=== PATIENT | female | born 1990 | race Caucasian/White ===

== ENCOUNTER → 2020-07-01 15:01 | Outpatient (CLI) | payer OTHER, MEDICAID, SELFPAY ==
[2020-07-01 15:38] LABS: Influenza A - CEPHEID Flu A NEGATIVE (NEGATIVE); Influenza B - CEPHEID Flu B NEGATIVE (NEGATIVE)
[2020-07-01 16:13] LABS: COVID19 -Nasal RAPID Negative (Negative)
== END ==
PROVIDERS: Visit Provider Physician Assistant
DX: Z11.59 Encounter for screening for other viral diseases (principal); R13.10 Dysphagia, unspecified; R07.0 Pain in throat
CPT/HCPCS: 87070; 87186; 87502; 87635

== ENCOUNTER 2022-01-10 22:41 | Emergency (ER) | payer OTHER, MEDICAID, SELFPAY ==
[2022-01-10 22:52] VITALS: BP 169/102; PULSE 82; RESP 18; TEMP 37.1; O2SAT 99; BMI 41.5
--- NOTE | 2022-01-10 23:03 | PC.NURSE ---
Reports headache is through out her head, goes down the back of her neck and into shoulders/upper back.
[2022-01-10 23:30] LABS: Bacteria Urine Occasional (0-1); Culture Indicated Urine Cult Not Indicated; RBC Urine 0-1/HPF (0-5/HPF); Squamous Epithelial Cell Urine 1-5 /HPF (0-5/HPF); WBC Urine None Seen (0-5/HPF)
--- NOTE | 2022-01-10 23:41 | ED.HA ---
HPI - Headache General Chief Complaint: Headache Stated Complaint: Severe pain in head since yesterday Time Seen by Provider: 01/10/22 22:59 Source: patient Mode of arrival: Ambulatory Limitations: no limitations History of Present Illness HPI Narrative: Patient is a 31-year-old female who is here for evaluation of a headache. She states that the pain is in the front of her head and also in the back of her head. Was a fairly sudden onset. She states that she was having sexual intercourse at the time when the symptoms started. This did occur yesterday is been constant since then. She reported that she had very similar symptoms approximately 1 week ago again while having sexual intercourse. The headache that she had a couple days ago only lasted for short period of time the resolved however today's has persisted. No vision changes. No numbness and tingling in arms or legs. No sinus congestion. No sore throat. No chest pain. No shortness of breath. No abdominal pain. No tingling in her extremities. Related Data Previous Rx's Medication Instructions Recorded benzonatate 100 mg capsule 100 mg PO BID PRN cough #14 caps 10/06/21 methylprednisolone 4 mg tablets in See Rx Instructions PO PER PKG DIR 10/06/21 a dose pack (Medrol (Brian)) #21 ea omeprazole 20 mg capsule,delayed 20 mg PO DAILY #30 caps 10/06/21 release Allergies Allergy/AdvReac Type Severity Reaction Status Date / Time No Known Drug Allergies Allergy Unverified 10/06/21 18:28 Review of Systems Constitutional Constitutional: Reports system reviewed and no additional complaints, except as documented and Reports headache(s) Eyes Eyes: Reports as per HPI and Reports system reviewed and no additional complaints, except as documented ENT Ears, Nose, Mouth, and Throat: Reports system reviewed and no additional complaints, except as documented, Reports as per HPI and Reports headache(s) Cardiovascular Cardiovascular: Reports system reviewed and no additional complaints, except as documented Respiratory Respiratory: Reports system reviewed and no additional complaints, except as documented Gastrointestinal Gastrointestinal: Reports system reviewed and no additional complaints, except as documented Musculoskeletal Musculoskeletal: Reports system reviewed and no additional complaints, except as documented Integumentary/Breasts Skin/Breast: Reports system reviewed and no additional complaints, except as documented Neurologic Neurologic: Reports headache(s) Hematologic/Lymphatic On Anticoagulants: No Patient History Medical History No active medical problems Social History Smoking Status: Never smoker Smoking Status: Never smoker alcohol intake frequency: holidays/special occasions only Substance Use Type: does not use Exam Initial Vital Signs Initial Vital Signs: Vital Signs Temperature 98.8 F 01/10/22 22:52 Pulse Rate 82 01/10/22 22:52 Respiratory Rate 18 01/10/22 22:52 Blood Pressure 169/102 H 01/10/22 22:52 Pulse Oximetry 99 01/10/22 22:52 Oxygen Delivery Method 01/10/22 22:52 Const General: cooperative, comfortable, well developed and No ill appearing HENMT Head: normal to inspection and normocephalic Face and sinus: normal facial exam Eyes General: Yes appearance normal, both eyes and all related structures Pupils: PERRL EOM: EOM intact bilaterally Resp Effort & Inspection: normal respiratory effort Auscultation: clear to auscultation bilaterally Cardio Rate: regular rate Rhythm: regular rhythm Skin General: no rashes or lesions noted Neuro General: patient alert, patient awake, patient oriented x3 and moves all extremities Cranial Nerves: CN's II-XI intact bilaterally Cognition: normal cognition Speech: speech normal Motor: muscle tone normal throughout Extrem General: normal to inspection and capillary refill normal Psych Appearance: grossly normal and well kempt Course Orders Ordered: ED Orders 01/10/22 23:07 Urine Microscopic Stat 01/10/22 23:35 Basic Metabolic Panel Stat Complete Blood Count AUTO DIFF Stat 01/10/22 23:44 CT angio head and neck Stat Discontinued Medications Diphenhydramine HCl (Diphenhydramine 50 Mg/Ml Vial) 25 mg IV NOW ONE Stop: 01/11/22 00:16 Last Admin: 01/11/22 00:29 Dose: 25 mg Documented By: SILVER Sodium Chloride (Normal Saline 0.9%) 1,000 mls @ 1,000 mls/hr IV BOLUS ONE Stop: 01/11/22 00:42 Last Infusion: 01/11/22 01:18 Dose: 0 mls/hr Documented By: Admin: 01/11/22 00:17 Dose: 1,000 mls/hr Documented By: SILVER Ketorolac Tromethamine (Ketorolac 30 Mg/Ml Vial) 30 mg IV NOW ONE Stop: 01/11/22 01:07 Last Admin: 01/11/22 01:14 Dose: 30 mg Documented By: JANY Metoclopramide HCl (Metoclopramide 10 Mg/2 Ml Inj) 10 mg IV NOW ONE Stop: 01/11/22 00:16 Last Admin: 01/11/22 00:28 Dose: 10 mg Documented By: SILVER Vital Signs Vital signs: Vital Signs - 8 hr 01/10/22 22:52 Temperature 98.8 F Pulse Rate 82 Respiratory Rate 18 Blood Pressure 169/102 H Pulse Oximetry 99 Oxygen Delivery Method Room Air MDM - Headache Lab Data Attestation: I reviewed the patient's lab results. Result diagrams: 01/10/22 23:35 01/10/22 23:35 Labs: Lab Results 01/10/22 01/10/22 01/10/22 Range/Units 23:07 23:35 23:35 WBC 9.4 (4.5-11.0) X10^3/uL RBC 4.83 (4.0-5.2) X10^6/uL Hgb 13.0 (12.0-16.0) g/dL Hct 39.1 (36-46) % MCV 80.9 (80-100) fL MCH 26.9 (26-34) PG MCHC 33.2 (30-36) % RDW 14.0 (11.6-14.8) % Plt Count 354 (150-400) X10^3/uL Neut % (Auto) 59.0 (50-75) % Lymph % (Auto) 27.5 (25-40) % [place] % (Auto) 9.0 (3-14) % Eos % (Auto) 3.2 (2-4) % Baso % (Auto) 1.3 (0-2) % Neut # (Auto) 5600 (6871-8546) /uL Lymph # (Auto) 2600 (2598-5306) /uL [place] # (Auto) 800 (0-900) /uL Eos # (Auto) 300 (0-450) /uL Baso # (Auto) 100 (0-100) /uL Sodium 139 (137-145) mmol/L Potassium 3.5 (3.4-5.1) mmol/L Chloride 103 (98-107) mmol/L Carbon Dioxide 27 (22-32) mmol/L BUN 13 (7-17) mg/dL Creatinine 0.88 (0.52-1.04) mg/dL Estimated GFR > 60 (>60) mL/min BUN/Creatinine Ratio 14.8 (6-22) Glucose 101 H (70-100) mg/dL Calcium 10.2 (8.4-10.2) mg/dL Urine RBC 0-1/hpf (0-5/HPF) Urine WBC None seen (0-5/HPF) Ur Squamous Epith Cells 1-5 /hpf (0-5/HPF) Urine Bacteria Occasional (0-1) (None) Ur Culture Indicated? Cult not indicated Point of Care Testing Test Results Negative Urine Dip Bedside Urine Glucose Negative Bedside Urine Bilirubin - Negative Bedside Urine Ketone - Negative Urine Specific [place] 1.020 Bedside Urine Occult Blood +/- Bedside Urine pH 6.0 Bedside Urine Protein - Negative Bedside Urine Urobilinogen - Negative Bedside Urine Nitrite - Negative Bedside Urine Leukocytes - Negative Esterase Imaging Data CTA - brain/neck: Radiologist's Impression: [place] [address] CT Scan Report Signed Patient: Marisela Forrest MR#: [id number] : 1990 Acct:[id number] Age/Sex: 31 / F Date of Service: 01/10/22 Loc: ED Accession Number: [id number] ?? Procedure: CT angio head and neck Ordering Provider: Jai Brantley D.O. PROCEDURE:? CT ANGIO HEAD AND NECK ? INDICATIONS:? Sudden-onset headache 2 days ago ? TECHNIQUE:? Pre-contrast 5 mm thick sections acquired from the foramen magnum to the vertex.? After the administration of intravenous contrast, 1 mm thick sections acquired from the aortic arch through the [place].? Post-contrast 4.5 mm thick sections then re-acquired from the foramen magnum to the vertex.? 3-dimensional bjibewt-ucddswkpk-nlqrnzdkys (MIP) and/or volume rendering reformats were acquired of the central intracranial vasculature and neck separately. For radiation dose reduction, the following was used:? automated exposure control, adjustment of mA and/or kV according to patient size.? ? COMPARISON:? [facility], MR, MR BRAIN WITH/WITHOUT CONTRAST, 05/09/2018, 8:47. ? FINDINGS:? Image quality:? Excellent.? ? BRAIN:? CSF spaces:? Basal cisterns are patent.? No extra-axial fluid collections.? Ventricles are normal in size and shape.? ? Brain:? No intracranial hemorrhage, mass, or mass effect.? Patrick-white matter interface appears preserved.? No abnormal intracranial enhancement.? ? Skull and face:? Calvarium and facial bones appear intact, without suspicious lesions.? Orbits appear normal.? ? Sinuses:? Sinuses and mastoids are clear.? ? HEAD CT ANGIOGRAPHY:? Anterior circulation:? Intracranial internal carotid arteries are normal in size and appear patent bilaterally.? There is mild atherosclerotic calcification along the cavernous segments of the internal carotid arteries.? The paired anterior cerebral arteries appear patent bilaterally.? The anterior communicating artery also appears patent. The middle cerebral arteries appear patent bilaterally.? No high-grade stenosis, occlusion, or filling defects.? No cerebral aneurysms identified. ? Posterior circulation:? Visualized portions of the vertebral arteries demonstrate normal caliber, and join to form a patent basilar artery.? The posterior cerebral arteries appears patent bilaterally.? No high-grade stenosis, occlusion, or filling defects.? No cerebral aneurysms identified. ? NECK CT ANGIOGRAPHY:? Carotid system:? The great vessels demonstrate a conventional anatomy as they arise from the aortic arch.? The origins of the common carotid arteries appear patent.? The common carotid arteries demonstrate normal caliber and courses.? The bifurcation regions are both widely patent.? The internal carotid arteries demonstrate normal calibers and courses.? ? Posterior circulation:? The origins of the vertebral arteries both appear patent.? More superior extracranial portions of both vertebral arteries also demonstrate normal courses and calibers.? They join to form a patent basilar artery.? ? Soft tissues:? Visualized neck soft tissues demonstrate a hypoattenuating left thyroid nodule measuring up to 0.8 cm. ? Bones:? No suspicious bony lesions.? Visualized cervical spine appears normally aligned.? IMPRESSION:? ? 1. No acute intracranial abnormality. ? 2. No high-grade stenosis or occlusion of the central intracranial arteries. ? 3. No high-grade stenosis or occlusion of the head and neck arteries.? Carotid bulbs are widely patent.? ? Any quantitative measurements of stenosis were performed using NASCET criteria.? ? ? Dictated by: Jesús Palafox M.D. on 01/11/2022 at 0:36 ? ? Approved by: Jesús Palafox M.D. on 01/11/2022 at 0:46? [facility] Narrative Medical decision making narrative: Patient has a unremarkable neurologic exam CTA of the head neck showed no signs of bleed nor clots nor intracranial hemorrhage. She reports improvement of headache after medication provided here in the ER. Consider meningitis however symptoms are not consistent with that. Considered head bleed however head CT is unremarkable. Also consider vasospasm given the nature of the onset of the symptoms. With improvement of symptoms and workup in exam up to this point I feel patient could be safely discharged home follow up with her primary doctor. She was advised that she does need to talk with him about potentially seeing a neurologist in the fact that this is not happen 2 different times. She was given return precautions. She expressed understanding and agreement. Discharge Plan Departure Patient Disposition: Home Clinical Impression: Headache Instructions: DI for Headache Activity Restrictions/Additional Instructions: Continue to take all of your medications as directed. Contact your primary doctor for a follow-up especially if her headache does not improve over the next couple days. Return to the emergency department for any worsening symptoms. Prescriptions: No Action methylprednisolone [Medrol (Brian)] 4 mg tablets,dose pack See Rx Instructions PO PER PKG DIR Qty: 21 0RF Rx Instructions: PO PER PKG DIR benzonatate 100 mg capsule 100 mg PO BID PRN (Reason: cough) Qty: 14 0RF omeprazole 20 mg capsule,delayed release(DR/EC) 20 mg PO DAILY Qty: 30 0RF Rx Instructions: on empty stomach Referrals: Miscellaneous,Doctor, [Primary Care Provider] -
--- NOTE | 2022-01-10 23:44 | DI.CT.S_ITS ---
PROCEDURE: CT ANGIO HEAD AND NECK INDICATIONS: Sudden-onset headache 2 days ago TECHNIQUE: Pre-contrast 5 mm thick sections acquired from the foramen magnum to the vertex. After the administration of intravenous contrast, 1 mm thick sections acquired from the aortic arch through the [place]. Post-contrast 4.5 mm thick sections then re-acquired from the foramen magnum to the vertex. 3-dimensional djaigwg-eumhoxuxt-xbfwydgcjq (MIP) and/or volume rendering reformats were acquired of the central intracranial vasculature and neck separately. For radiation dose reduction, the following was used: automated exposure control, adjustment of mA and/or kV according to patient size. COMPARISON: [facility], MR, MR BRAIN WITH/WITHOUT CONTRAST, 05/09/2018, 8:47. FINDINGS: Image quality: Excellent. BRAIN: CSF spaces: Basal cisterns are patent. No extra-axial fluid collections. Ventricles are normal in size and shape. Brain: No intracranial hemorrhage, mass, or mass effect. Patrick-white matter interface appears preserved. No abnormal intracranial enhancement. Skull and face: Calvarium and facial bones appear intact, without suspicious lesions. Orbits appear normal. Sinuses: Sinuses and mastoids are clear. HEAD CT ANGIOGRAPHY: Anterior circulation: Intracranial internal carotid arteries are normal in size and appear patent bilaterally. There is mild atherosclerotic calcification along the cavernous segments of the internal carotid arteries. The paired anterior cerebral arteries appear patent bilaterally. The anterior communicating artery also appears patent. The middle cerebral arteries appear patent bilaterally. No high-grade stenosis, occlusion, or filling defects. No cerebral aneurysms identified. Posterior circulation: Visualized portions of the vertebral arteries demonstrate normal caliber, and join to form a patent basilar artery. The posterior cerebral arteries appears patent bilaterally. No high-grade stenosis, occlusion, or filling defects. No cerebral aneurysms identified. NECK CT ANGIOGRAPHY: Carotid system: The great vessels demonstrate a conventional anatomy as they arise from the aortic arch. The origins of the common carotid arteries appear patent. The common carotid arteries demonstrate normal caliber and courses. The bifurcation regions are both widely patent. The internal carotid arteries demonstrate normal calibers and courses. Posterior circulation: The origins of the vertebral arteries both appear patent. More superior extracranial portions of both vertebral arteries also demonstrate normal courses and calibers. They join to form a patent basilar artery. Soft tissues: Visualized neck soft tissues demonstrate a hypoattenuating left thyroid nodule measuring up to 0.8 cm. Bones: No suspicious bony lesions. Visualized cervical spine appears normally aligned. IMPRESSION: 1. No acute intracranial abnormality. 2. No high-grade stenosis or occlusion of the central intracranial arteries. 3. No high-grade stenosis or occlusion of the head and neck arteries. Carotid bulbs are widely patent. Any quantitative measurements of stenosis were performed using NASCET criteria. Dictated by: Jesús Palafox M.D. on 01/11/2022 at 0:36 Approved by: Jesús Palafox M.D. on 01/11/2022 at 0:46
[2022-01-10 23:51] LABS: Add Manual Diff / Slide Review NO; Basophils Absolute Auto 100 /uL (0-100); Basophils Percent Auto 1.3 % (0-2); Eosinophils Absolute Auto 300 /uL (0-450); Eosinophils Percent Auto 3.2 % (2-4); Hematocrit 39.1 % (36-46); Lymphocytes Absolute Auto 2600 /uL (1100-4500); Lymphocytes Percent Auto 27.5 % (25-40); Mean Corpuscular HGB Conc 33.2 % (30-36); Mean Corpuscular Hemoglobin 26.9 PG (26-34); Mean Corpuscular Volume 80.9 fL (80-100); Monocytes Absolute Auto 800 /uL (0-900); Neutrophils Absolute Auto 5600 /uL (1500-7000); Platelet Count 354 X10^3/uL (150-400); Red Blood Cell Count 4.83 X10^6/uL (4.0-5.2); White Blood Cell Count 9.4 X10^3/uL (4.5-11.0)
[2022-01-10 23:56] LABS: BUN Creatinine Ratio 14.8 (6-22); Blood Urea Nitrogen 13 mg/dL (7-17); Calcium 10.2 mg/dL (8.4-10.2); Carbon Dioxide 27 mmol/L (22-32); Chloride 103 mmol/L (98-107); Estimated Glomerular Filt Rate > 60 mL/min (>60); Glucose 101 mg/dL (70-100); HEMOLYSIS < 15 (0-50); Potassium 3.5 mmol/L (3.4-5.1); Sodium 139 mmol/L (137-145)
[2022-01-11] MEDS: SODIUM CHLORIDE 0.9% 1,000 ML 1000 ML IV (00:17)
[2022-01-11] MEDS: METOCLOPRAMIDE 10 MG/2 ML INJ IV (00:28)
[2022-01-11] MEDS: diphenhydrAMINE 50 MG/ML VIAL 25 MG IV (00:29)
[2022-01-11] MEDS: KETOROLAC 30 MG/ML VIAL IV (01:14)
[2022-01-11 02:08] VITALS: BP 165/95; PULSE 87; RESP 20; O2SAT 98
== END 2022-01-11 02:09 | disposition home or self-care (01) ==
PROVIDERS: Emergency Provider Emergency Medicine
DX: R51.9 Headache, unspecified (principal)
CPT/HCPCS: 36415; 70496; 70498; 80048; 81003; 81015; 81025; 85025; 96374; 96375; 99284; J1200; J1885; J2765; Q9967

== ENCOUNTER → 2022-08-28 15:06 | Outpatient (CLI) | payer OTHER, MEDICAID, SELFPAY ==
--- NOTE | 2022-08-28 | DI.CT.S_ITS ---
PROCEDURE: CT SINUS SCREEN WO CON INDICATIONS: Chronic pansinusitis TECHNIQUE: Noncontrast 3.0 mm axial images acquired from the frontal sinuses to the mid-sella, with coronal and sagittal reformats. For radiation dose reduction, the following was used: automated exposure control, adjustment of mA and/or kV according to patient size. COMPARISON: None. FINDINGS: Image quality: Excellent. Maxillary Sinuses: No bony remodeling or destruction. Sinuses are clear. Ethmoid Air Cells: No bony remodeling or destruction. Sinuses are clear. Sphenoid Sinuses: No bony remodeling or destruction. Sinuses are clear. Frontal Sinuses: No bony remodeling or destruction. Sinuses are clear. Ostiomeatal Complexes: Ostiomeatal complexes are patent. No [place] cells. Miscellaneous: Cartilaginous septum is perforated. Defect measures 1.8 by 0.2 cm IMPRESSION: Perforated nasal septum. Otherwise unremarkable CT of the paranasal sinuses Approved by: Caleb Humphries M.D. on 08/28/2022 at 17:29
== END ==
PROVIDERS: Referring Provider Otolaryngology; Visit Provider Otolaryngology
DX: J32.4 Chronic pansinusitis (principal); J34.89 Other specified disorders of nose and nasal sinuses; R43.9 Unspecified disturbances of smell and taste
CPT/HCPCS: 70486

== ENCOUNTER → 2022-11-02 17:29 | Outpatient (CLI) | payer OTHER, MEDICAID, SELFPAY ==
--- NOTE | 2022-11-02 17:37 | DI.RAD.S_ITS ---
PROCEDURE: XR CHEST 2V INDICATIONS: Shortness of breath TECHNIQUE: 2 views of the chest were acquired. COMPARISON: [facility], CR, XR CHEST 1 VIEW, 08/21/2022, 11:13. [facility], CR, XR CHEST 1 VIEW, 10/11/2021, 14:42. FINDINGS: Surgical changes and devices: None. Lungs and pleura: Lungs are clear. No pleural effusions or pneumothorax. Mediastinum: Mediastinal contours are normal. Heart size is normal. Bones and chest wall: No suspicious bony abnormalities. Soft tissues appear unremarkable. IMPRESSION: Normal. Dictated by: Adalid Liriano M.D. on 11/02/2022 at 20:49 Approved by: Adalid Liriano M.D. on 11/02/2022 at 20:49
== END ==
PROVIDERS: Referring Provider Nurse Practitioner Family; Visit Provider Nurse Practitioner Family
DX: R06.02 Shortness of breath (principal)
CPT/HCPCS: 71046

== ENCOUNTER 2022-12-27 16:14 | Emergency (ER) | payer OTHER, MEDICAID, SELFPAY ==
[2022-12-27 16:35] VITALS: BP 150/93; PULSE 72; RESP 16; TEMP 36.4; O2SAT 100; BMI 42.1
[2022-12-27 18:55] LABS: Add Manual Diff / Slide Review NO; Basophils Absolute Auto 100 /uL (0-100); Basophils Percent Auto 1.3 % (0-2); Eosinophils Absolute Auto 200 /uL (0-450); Eosinophils Percent Auto 2.1 % (2-4); Hematocrit 36.9 % (36-46); Hemoglobin 12.1 g/dL (12.0-16.0); Lymphocytes Absolute Auto 2600 /uL (1100-4500); Lymphocytes Percent Auto 27.4 % (25-40); Mean Corpuscular HGB Conc 32.9 % (30-36); Mean Corpuscular Hemoglobin 25.7 PG (26-34); Mean Corpuscular Volume 78.3 fL (80-100); Monocytes Absolute Auto 700 /uL (0-900); Monocytes Percent Auto 7.7 % (3-14); Neutrophils Absolute Auto 5900 /uL (1500-7000); Neutrophils Percent Auto 61.5 % (50-75); Platelet Count 410 X10^3/uL (150-400); Red Blood Cell Count 4.71 X10^6/uL (4.0-5.2); Red Cell Distribution Width 14.3 % (11.6-14.8); White Blood Cell Count 9.5 X10^3/uL (4.5-11.0)
[2022-12-27 19:13] LABS: BUN Creatinine Ratio 15.3 (6-22); Blood Urea Nitrogen 13 mg/dL (7-17); Calcium 9.4 mg/dL (8.4-10.2); Carbon Dioxide 26 mmol/L (22-32); Chloride 102 mmol/L (98-107); Estimated Glomerular Filt Rate > 60 mL/min (>60); Glucose 93 mg/dL (70-100); HEMOLYSIS < 15 (0-50); Potassium 3.6 mmol/L (3.4-5.1); Sodium 138 mmol/L (137-145)
--- NOTE | 2022-12-27 19:33 | ED_ITS ---
HPI - General Adult General Chief complaint: Abdominal Pain Stated complaint: Black, Tar-like, Bloody stool Time Seen by Provider: 12/27/22 18:08 Source: patient Mode of arrival: Ambulatory History of Present Illness HPI narrative: Patient is a 32-year-old female who is here for evaluation approximately 1 week of abdominal cramping and 1 day black tar stools and clots. She has had GI issues in the past. She does have a GI doctor that she does see. Has had an endoscopy and also colonoscopy but that was years ago. She is not on anti coagulation. Is not feeling chest pain or lightheaded no shortness of breath on exertion. Related Data Previous Rx's Medication Instructions Recorded benzonatate 100 mg capsule 100 mg PO BID PRN cough #14 caps 10/06/21 methylprednisolone 4 mg tablets in See Rx Instructions PO PER PKG DIR 10/06/21 a dose pack (Medrol (Brian)) #21 ea omeprazole 20 mg capsule,delayed 20 mg PO DAILY #30 caps 10/06/21 release Allergies Allergy/AdvReac Type Severity Reaction Status Date / Time No Known Drug Allergies Allergy Unverified 10/06/21 18:28 Review of Systems Constitutional Constitutional: Reports system reviewed and no additional complaints, except as documented Cardiovascular Cardiovascular: Reports system reviewed and no additional complaints, except as documented Respiratory Respiratory: Reports system reviewed and no additional complaints, except as documented Gastrointestinal Gastrointestinal: Reports system reviewed and no additional complaints, except as documented Hematologic/Lymphatic On Anticoagulants: No Patient History Medical History No active medical problems Social History Smoking Status: Never smoker Smoking Status: Never smoker alcohol intake frequency: holidays/special occasions only Substance Use Type: does not use Exam Initial Vital Signs Initial Vital Signs: Vital Signs Temperature 97.6 F 12/27/22 16:35 Pulse Rate 72 12/27/22 16:35 Respiratory Rate 16 12/27/22 16:35 Blood Pressure 150/93 H 12/27/22 16:35 Pulse Oximetry 100 12/27/22 16:35 Oxygen Delivery Method Room Air 12/27/22 16:35 HENMT Head: normal to inspection and normocephalic Resp Effort & Inspection: normal respiratory effort Cardio Rate: regular rate GI Inspection: non-distended Neuro General: patient alert, patient awake and moves all extremities Course Orders Ordered: ED Orders 12/27/22 18:36 Basic Metabolic Panel Stat Complete Blood Count AUTO DIFF Stat Vital Signs Vital signs: Vital Signs - 8 hr 12/27/22 19:37 Pulse Rate 73 Respiratory Rate 18 Blood Pressure 136/72 Pulse Oximetry 98 Oxygen Delivery Method Room Air Medical Decision Making Lab Data Lab results reviewed: Yes I reviewed the patient's lab results. 12/27/22 18:36 12/27/22 18:36 Labs: Lab Results 12/27/22 12/27/22 Range/Units 18:36 18:36 WBC 9.5 (4.5-11.0) X10^3/uL RBC 4.71 (4.0-5.2) X10^6/uL Hgb 12.1 (12.0-16.0) g/dL Hct 36.9 (36-46) % MCV 78.3 L (80-100) fL MCH 25.7 L (26-34) PG MCHC 32.9 (30-36) % RDW 14.3 (11.6-14.8) % Plt Count 410 H (150-400) X10^3/uL Neut % (Auto) 61.5 (50-75) % Lymph % (Auto) 27.4 (25-40) % [place] % (Auto) 7.7 (3-14) % Eos % (Auto) 2.1 (2-4) % Baso % (Auto) 1.3 (0-2) % Neut # (Auto) 5900 (6080-1513) /uL Lymph # (Auto) 2600 (6813-9343) /uL [place] # (Auto) 700 (0-900) /uL Eos # (Auto) 200 (0-450) /uL Baso # (Auto) 100 (0-100) /uL Sodium 138 (137-145) mmol/L Potassium 3.6 (3.4-5.1) mmol/L Chloride 102 (98-107) mmol/L Carbon Dioxide 26 (22-32) mmol/L BUN 13 (7-17) mg/dL Creatinine 0.85 (0.52-1.04) mg/dL Estimated GFR > 60 (>60) mL/min BUN/Creatinine Ratio 15.3 (6-22) Glucose 93 (70-100) mg/dL Calcium 9.4 (8.4-10.2) mg/dL MDM Narrative Medical decision making narrative: Patient is anemic. Not tachycardic. Hypotensive. Asymptomatic the rectal bleeding. Patient is going to require further in specifically colonoscopy potentially an upper endoscopy but this can be as an outpatient. Informed her that she should contact her GI doctor for this and she was also given numbers were General surgery here locally indication for any radiologic studies did discuss starting on a proton pump inhibitor she was given return precautions. She expressed understanding agreement Discharge Plan Departure Patient Disposition: Home Clinical Impression: Melena Instructions: DI for Rectal Bleeding Activity Restrictions/Additional Instructions: I do recommend that on Saturday you contact your GI doctor for follow-up to discuss the indications for a colonoscopy. You could also contact the general surgery department at the number provided below. Also recommend that you started on a medicine called a proton pump inhibitor. Examples these include Nexium, omeprazole, esomeprazole, Prilosec. You can purchase these [id number]. Return to the emergency department for new or worsening symptoms. Prescriptions: No Action methylprednisolone [Medrol (Brian)] 4 mg tablets,dose pack See Rx Instructions PO PER PKG DIR Qty: 21 0RF Rx Instructions: PO PER PKG DIR benzonatate 100 mg capsule 100 mg PO BID PRN (Reason: cough) Qty: 14 0RF omeprazole 20 mg capsule,delayed release(DR/EC) 20 mg PO DAILY Qty: 30 0RF Rx Instructions: on empty stomach Referrals: Surjit Kay MD [Physician] - Miscellaneous,MD Jl [Primary Care Provider] - Stand Alone Forms: Patient Portal/API
[2022-12-27 19:37] VITALS: BP 136/72; PULSE 73; RESP 18; O2SAT 98
== END 2022-12-27 19:44 | disposition home or self-care (01) ==
PROVIDERS: Emergency Provider Emergency Medicine
DX: K92.1 Melena (principal); R10.9 Unspecified abdominal pain
CPT/HCPCS: 80048; 85025; 99281; 99283

== ENCOUNTER 2024-05-04 18:15 | Emergency (ER) | payer OTHER, MEDICAID, SELFPAY ==
[2024-05-04 18:23] VITALS: BP 164/92; PULSE 99; RESP 18; TEMP 36.8; O2SAT 99; BMI 44.1
--- NOTE | 2024-05-04 18:37 | ED_ITS ---
HPI - Headache General Chief Complaint: Headache Stated Complaint: Headache Time Seen by Provider: 05/04/24 18:25 Source: patient Mode of arrival: Ambulatory Limitations: no limitations History of Present Illness HPI Narrative: Patient is a 34-year-old female. She does have a history of headaches but she states this is somewhat worse and different than prior headaches. It was a fairly sudden onset approximately 24 hours ago. No fevers. She states that it does feel like it is in the front of her head in his a sharp and pounding headache. It does get somewhat worse when she looks up. No numbness or tingling in her extremities. No chest pain or shortness of breath. She has been trying home natural remedies without improvement of her headache. Related Data Allergies Allergy/AdvReac Type Severity Reaction Status Date / Time hydrocodone AdvReac Headache Verified 05/04/24 18:26 Review of Systems Review of Systems Narrative: See HPI Patient History Medical History No active medical problems Social History Smoking Status: Never smoker Smoking Status: Never smoker alcohol intake frequency: holidays/special occasions only Substance Use Type: does not use Exam Initial Vital Signs Initial Vital Signs: Vital Signs Temperature 98.2 F 05/04/24 18:23 Pulse Rate 99 H 05/04/24 18:23 Respiratory Rate 18 05/04/24 18:23 Blood Pressure 164/92 H 05/04/24 18:23 Pulse Oximetry 99 05/04/24 18:23 Oxygen Delivery Method Room Air 05/04/24 18:23 Const General: cooperative and No ill appearing HENPA Head: normal to inspection and normocephalic Resp Effort & Inspection: normal respiratory effort Auscultation: clear to auscultation bilaterally Cardio Rate: regular rate Rhythm: regular rhythm Skin General: no rashes or lesions noted Neuro General: patient alert, patient awake, patient oriented x3 and moves all extremities Cognition: normal cognition Speech: speech normal Gait: normal gait Motor: muscle tone normal throughout Extrem General: normal to inspection Scores GCS Maryam coma scale eye opening: Spontaneous [place] coma scale verbal response: Orientated [place] coma scale motor response: Obey commands [place] coma scale total score: 15 Course Orders Ordered: ED Orders 05/04/24 18:41 CT angio head and neck Stat 05/04/24 19:10 Basic Metabolic Panel Stat Complete Blood Count AUTO DIFF Stat Test Serum,Qual Stat 05/04/24 19:16 CT head/brain wo con Stat Discontinued Medications Diphenhydramine HCl (Diphenhydramine 50 Mg/Ml Vial) 25 mg IV NOW ONE Stop: 05/04/24 18:39 Last Admin: 05/04/24 19:21 Dose: 25 mg Documented By: Sodium Chloride (Normal Saline 0.9%) 500 mls @ 500 mls/hr IV BOLUS ONE Stop: 05/04/24 19:37 Last Infusion: 05/04/24 20:31 Dose: Infused Documented By: Admin: 05/04/24 19:21 Dose: 500 mls/hr Documented By: Acetaminophen (Ofirmev) 1,000 mg in 100 mls @ 400 mls/hr IV NOW ONE Stop: 05/04/24 18:52 Last Infusion: 05/04/24 20:31 Dose: Infused Documented By: Admin: 05/04/24 19:21 Dose: 400 mls/hr Documented By: Metoclopramide HCl (Metoclopramide 10 Mg/2 Ml Inj) 10 mg IV NOW ONE Stop: 05/04/24 18:39 Last Admin: 05/04/24 19:21 Dose: 10 mg Documented By: Vital Signs Vital signs: Vital Signs - 8 hr 05/04/24 18:23 05/04/24 19:33 05/04/24 19:33 Temperature 98.2 F Pulse Rate 99 H 111 H Respiratory Rate 18 Blood Pressure 164/92 H 158/96 H Pulse Oximetry 99 99 Oxygen Delivery Method Room Air 05/04/24 20:00 05/04/24 20:00 05/04/24 20:35 Temperature 98.2 F Pulse Rate 93 H 85 Respiratory Rate 17 Blood Pressure 141/72 H 141/72 H Pulse Oximetry 96 98 Oxygen Delivery Method Room Air MDM - Headache Lab Data Attestation: I reviewed the patient's lab results. 05/04/24 19:10 05/04/24 19:10 Labs: Lab Results 05/04/24 Range/Units 19:10 WBC 8.7 (4.5-11.0) X10^3/uL RBC 5.29 H (4.0-5.2) X10^6/uL Hgb 13.2 (12.0-16.0) g/dL Hct 40.9 (36-46) % MCV 77.4 L (80-100) fL MCH 24.9 L (26-34) PG MCHC 32.2 (30-36) % RDW 16.7 H (11.6-14.8) % Plt Count 458 H (150-400) X10^3/uL Neut % (Auto) 70.8 (50-75) % Lymph % (Auto) 17.0 L (25-40) % [place] % (Auto) 9.4 (3-14) % Eos % (Auto) 1.7 L (2-4) % Baso % (Auto) 1.1 (0-2) % Neut # (Auto) 6100 (7151-5155) /uL Lymph # (Auto) 1500 (7969-0481) /uL [place] # (Auto) 800 (0-900) /uL Eos # (Auto) 100 (0-450) /uL Baso # (Auto) 100 (0-100) /uL Sodium 139 (137-145) mmol/L Potassium 4.0 (3.4-5.1) mmol/L Chloride 106 (98-107) mmol/L Carbon Dioxide 25 (22-32) mmol/L BUN 12 (7-17) mg/dL Creatinine 0.76 (0.52-1.04) mg/dL Estimated GFR > 60 (>60) mL/min BUN/Creatinine Ratio 15.8 (6-22) Glucose 126 H (70-100) mg/dL Calcium 9.4 (8.4-10.2) mg/dL Serum , Qual Negative (Negative) Imaging Data CTA - brain/neck: Radiologist's Impression: PROCEDURE: CT ANGIO HEAD AND NECK INDICATIONS: Sudden frontal headache TECHNIQUE: After the administration of intravenous contrast, 1 mm thick sections acquired from the aortic arch through the [place]. 3-dimensional pgxymil-clabhugub-kevyjkzqra (MIP) and/or volume rendering reformats were acquired of the central intracranial vasculature and neck separately. For radiation dose reduction, the following was used: automated exposure control, adjustment of mA and/or kV according to patient size. COMPARISON: [facility], CT, CT ANGIO HEAD AND NECK, 01/10/2022, 23:59. FINDINGS: Image quality: Diagnostic. BRAIN: CSF spaces: Ventricles are normal in size and shape. Basal cisterns are patent. No extra-axial fluid collections. Brain: No significant abnormality of the brain can be seen. Skull and face: Calvarium and facial bones appear intact, without suspicious lesions. Orbits appear normal. Sinuses: Sinuses and mastoids are clear. HEAD CT ANGIOGRAPHY: Anterior circulation: Intracranial internal carotid arteries are normal in size and flow. The flow within the paired anterior cerebral arteries is normal and symmetric. The flow within the middle cerebral arteries is normal and symmetric. The anterior communicating artery is seen. No aneurysms are seen. Posterior circulation: Visualized portions of the vertebral arteries demonstrate normal caliber, and join to form a normal appearing basilar artery. Flow within the posterior cerebral arteries is normal and symmetric. No aneurysms are seen. NECK CT ANGIOGRAPHY: Carotid system: The great vessels demonstrate a conventional anatomy as they arise from the aortic arch. The origins of the common carotid arteries appear patent. The common carotid arteries demonstrate normal caliber and courses. The bifurcation regions are both widely patent. The internal carotid arteries demonstrate normal calibers and courses. Posterior circulation: The origins of the vertebral arteries both appear widely patent. The more superior extracranial portions of both vertebral arteries also demonstrate normal courses and calibers. They join to form a normal appearing basilar artery. Soft tissues: Visualized neck soft tissues demonstrate no suspicious abnormalities. Bones: No suspicious bony lesions. Visualized cervical spine appears normally aligned. IMPRESSION: 1. No significant intracranial arterial abnormality is seen. 2. No significant abnormality is seen within the arteries of the neck. CT scan - head: Radiologist's Impression: PROCEDURE: CT HEAD/BRAIN WO CON INDICATIONS: New onset headache TECHNIQUE: Noncontrast 4.5 mm thick angled axial sections acquired from the foramen magnum to the vertex, with coronal and sagittal reformats. For radiation dose reduction, the following was used: automated exposure control, adjustment of mA and/or kV according to patient size. COMPARISON: None. FINDINGS: Image quality: Diagnostic. CSF spaces: Basal cisterns are patent. No extra-axial fluid collections. Ventricles are normal in size and shape. Brain: No midline shift. No intracranial masses or hemorrhage. Patrick-white matter interface is normal. Skull and face: Calvarium and visualized facial bones are intact, without suspicious lesions. Sinuses: Visualized sinuses and mastoids are clear. IMPRESSION: No CT evidence of acute intracranial abnormalities. MDM Narrative Medical decision making narrative: No focal neurologic deficits. Head CT and CTA of the head and neck are both negative. After medication she reports a 50% improvement in her headache. She states she feels well enough that she can go home. I have low suspicion for meningitis. There has been no trauma. Low suspicion for intracranial hemorrhage given the imaging studies have been performed. Will hold on a lumbar puncture for now. Low suspicion for CVA/TIA. Patient was discharged home per her request. She was given return precautions. She expressed understanding and agreement. Discharge Plan Departure Patient Disposition: Home Clinical Impression: Headache Instructions: DI for Headache Activity Restrictions/Additional Instructions: Recommend that you continue to take any medications as directed. Contact your primary doctor for a follow-up. Return to the emergency department for new or worsening symptoms. Referrals: Miscellaneous,MD Jl [Primary Care Provider] - Stand Alone Forms: Patient Portal/API
--- NOTE | 2024-05-04 18:41 | DI.CT.S_ITS ---
PROCEDURE: CT ANGIO HEAD AND NECK INDICATIONS: Sudden frontal headache TECHNIQUE: After the administration of intravenous contrast, 1 mm thick sections acquired from the aortic arch through the [place]. 3-dimensional ajvrvao-uryrltgaj-nnbnkcdieb (MIP) and/or volume rendering reformats were acquired of the central intracranial vasculature and neck separately. For radiation dose reduction, the following was used: automated exposure control, adjustment of mA and/or kV according to patient size. COMPARISON: [facility], CT, CT ANGIO HEAD AND NECK, 01/10/2022, 23:59. FINDINGS: Image quality: Diagnostic. BRAIN: CSF spaces: Ventricles are normal in size and shape. Basal cisterns are patent. No extra-axial fluid collections. Brain: No significant abnormality of the brain can be seen. Skull and face: Calvarium and facial bones appear intact, without suspicious lesions. Orbits appear normal. Sinuses: Sinuses and mastoids are clear. HEAD CT ANGIOGRAPHY: Anterior circulation: Intracranial internal carotid arteries are normal in size and flow. The flow within the paired anterior cerebral arteries is normal and symmetric. The flow within the middle cerebral arteries is normal and symmetric. The anterior communicating artery is seen. No aneurysms are seen. Posterior circulation: Visualized portions of the vertebral arteries demonstrate normal caliber, and join to form a normal appearing basilar artery. Flow within the posterior cerebral arteries is normal and symmetric. No aneurysms are seen. NECK CT ANGIOGRAPHY: Carotid system: The great vessels demonstrate a conventional anatomy as they arise from the aortic arch. The origins of the common carotid arteries appear patent. The common carotid arteries demonstrate normal caliber and courses. The bifurcation regions are both widely patent. The internal carotid arteries demonstrate normal calibers and courses. Posterior circulation: The origins of the vertebral arteries both appear widely patent. The more superior extracranial portions of both vertebral arteries also demonstrate normal courses and calibers. They join to form a normal appearing basilar artery. Soft tissues: Visualized neck soft tissues demonstrate no suspicious abnormalities. Bones: No suspicious bony lesions. Visualized cervical spine appears normally aligned. IMPRESSION: 1. No significant intracranial arterial abnormality is seen. 2. No significant abnormality is seen within the arteries of the neck. Any quantitative measurements of stenosis were performed using NASCET criteria. Dictated by: Ignacio Humphreys M.D. on 05/04/2024 at 19:41 Approved by: Ignacio Humphreys M.D. on 05/04/2024 at 19:42
--- NOTE | 2024-05-04 19:16 | DI.CT.S_ITS ---
PROCEDURE: CT HEAD/BRAIN WO CON INDICATIONS: New onset headache TECHNIQUE: Noncontrast 4.5 mm thick angled axial sections acquired from the foramen magnum to the vertex, with coronal and sagittal reformats. For radiation dose reduction, the following was used: automated exposure control, adjustment of mA and/or kV according to patient size. COMPARISON: None. FINDINGS: Image quality: Diagnostic. CSF spaces: Basal cisterns are patent. No extra-axial fluid collections. Ventricles are normal in size and shape. Brain: No midline shift. No intracranial masses or hemorrhage. Patrick-white matter interface is normal. Skull and face: Calvarium and visualized facial bones are intact, without suspicious lesions. Sinuses: Visualized sinuses and mastoids are clear. IMPRESSION: No CT evidence of acute intracranial abnormalities. Dictated by: Ignacio Humphreys M.D. on 05/04/2024 at 19:42 Approved by: Ignacio Humphreys M.D. on 05/04/2024 at 19:43
[2024-05-04] MEDS: ACETAMINOPHEN IV 1,000 MG/100 ML VIAL 400 MG IV (19:21)
[2024-05-04] MEDS: diphenhydrAMINE 50 MG/ML VIAL 25 MG IV (19:21)
[2024-05-04] MEDS: METOCLOPRAMIDE 10 MG/2 ML INJ IV (19:21)
[2024-05-04] MEDS: SODIUM CHLORIDE 0.9% 500 ML IV (19:21)
[2024-05-04 19:22] LABS: Add Manual Diff / Slide Review NO; Basophils Absolute Auto 100 /uL (0-100); Basophils Percent Auto 1.1 % (0-2); Eosinophils Absolute Auto 100 /uL (0-450); Eosinophils Percent Auto 1.7 % (2-4); Hematocrit 40.9 % (36-46); Hemoglobin 13.2 g/dL (12.0-16.0); Lymphocytes Absolute Auto 1500 /uL (1100-4500); Mean Corpuscular HGB Conc 32.2 % (30-36); Mean Corpuscular Hemoglobin 24.9 PG (26-34); Mean Corpuscular Volume 77.4 fL (80-100); Monocytes Absolute Auto 800 /uL (0-900); Monocytes Percent Auto 9.4 % (3-14); Neutrophils Absolute Auto 6100 /uL (1500-7000); Neutrophils Percent Auto 70.8 % (50-75); Platelet Count 458 X10^3/uL (150-400); Red Blood Cell Count 5.29 X10^6/uL (4.0-5.2); Red Cell Distribution Width 16.7 % (11.6-14.8); White Blood Cell Count 8.7 X10^3/uL (4.5-11.0)
[2024-05-04 19:33] VITALS: BP 158/96; PULSE 111; O2SAT 99
[2024-05-04 19:33] LABS: BUN Creatinine Ratio 15.8 (6-22); Blood Urea Nitrogen 12 mg/dL (7-17); Calcium 9.4 mg/dL (8.4-10.2); Carbon Dioxide 25 mmol/L (22-32); Chloride 106 mmol/L (98-107); Estimated Glomerular Filt Rate > 60 mL/min (>60); Glucose 126 mg/dL (70-100); HEMOLYSIS < 15 (0-50); Pregnancy Test Serum,Qual Negative (Negative); Sodium 139 mmol/L (137-145)
[2024-05-04 20:00] VITALS: BP 141/72; PULSE 93; O2SAT 96
[2024-05-04 20:35] VITALS: BP 141/72; PULSE 85; RESP 17; TEMP 36.8; O2SAT 98
== END 2024-05-04 20:38 | disposition home or self-care (01) ==
PROVIDERS: Emergency Provider Emergency Medicine
DX: R51.9 Headache, unspecified (principal)
CPT/HCPCS: 36415; 70450; 70496; 70498; 80048; 84703; 85025; 96365; 96375; 99284; J0136; J1200; J2765; Q9967

== ENCOUNTER 2024-06-10 13:49 | Emergency (ER) | payer OTHER, MEDICAID, SELFPAY ==
[2024-06-10] VITALS (7 sets, daily range): BP systolic 144–178; BP diastolic 85–99; PULSE 82–88; RESP 18; TEMP 36.9; O2SAT 94–100; BMI 43.4
--- NOTE | 2024-06-10 14:04 | ED.NEUROSD ---
HPI - Neuro Symptoms/Deficit General Chief Complaint: Neuro Symptoms/Deficit Stated Complaint: Poss Stroke t-2 Time Seen by Provider: 06/10/24 13:58 Source: patient Mode of arrival: Ambulatory History of Present Illness HPI Narrative: Patient here with . Complains of right facial drooping past 2 days. Describes it as twitching muscles in the face. However no limb numbness tingling or weakness. Patient has long history of migraine headaches. They have been under lot of stress recently they are trying to move. Patient is seen here 6 days ago had normal CT head and CT angiogram head and neck. She states her headache has improved. No vision changes. No rash on the face. No prior history of Cintron's palsy On Anticoagulants: No Related Data Home Medications Medication Instructions Recorded Confirmed amitriptyline 25 mg tablet 25 mg PO ONCE PM 06/13/24 06/13/24 ondansetron 4 mg disintegrating 4 mg PO Q8H PRN nausea/vomiting 06/13/24 06/13/24 tablet ubrogepant 50 mg tablet (Ubrelvy) 50 mg PO PRN PRN Migraine Headache 06/13/24 06/13/24 Allergies Allergy/AdvReac Type Severity Reaction Status Date / Time hydrocodone AdvReac Headache Verified 06/13/24 13:36 Review of Systems Review of Systems Narrative: GENERAL: Negative chills, fatigue, malaise, fever, sweats. HEENT: Negative sinus pain, ear pain, sore throat RESPIRATORY: Negative dyspnea, cough CARDIOVASCULAR: Negative chest pain, palpitations GASTROINTESTINAL: Negative nausea, vomiting, abdominal pain : Negative dysuria, frequency, hematuria MUSCULOSKELETAL: Negative muscle or bony pain SKIN: Negative rash, skin lesions NEUROLOGIC: Negative weakness, numbness, positive facial twitching ROS Unobtainable: All systems reviewed & are unremarkable except as noted in HPI and below Hematologic/Lymphatic On Anticoagulants: No Patient History Medical History No active medical problems Social History Smoking Status: Never smoker Smoking Status: Never smoker alcohol intake frequency: holidays/special occasions only Substance Use Type: does not use Exam Narrative Exam Narrative: GENERAL: in no distress, not toxic not dyspneic HEAD: Normocephalic. EYES: Pupils equal round slight symmetric edema of the eyelids. ENT: Mucous membranes moist. NECK: Trachea midline. CARDIOVASCULAR: Regular rate and rhythm RESPIRATORY: Clear to auscultation. Breath sounds equal bilaterally. No wheezes, rales, or rhonchi. GASTROINTESTINAL: Abdomen soft, non-tender EXTREMITIES: No gross deformities. BACK: No flank tenderness. NEURO: AOx4. Clear speech no facial droop fast exam is negative. Strong equal head of partner development. Lift each leg individually no drift. Negative pronator drift. SKIN: Warm and dry PSYCH: Not anxious, is cooperative Initial Vital Signs Initial Vital Signs: Vital Signs Temperature 98.4 F 06/10/24 13:51 Pulse Rate 88 06/10/24 13:51 Respiratory Rate 18 06/10/24 13:51 Blood Pressure 160/85 H 06/10/24 13:51 Pulse Oximetry 100 06/10/24 13:51 Oxygen Delivery Method Room Air 06/10/24 13:51 Scores NIH Stroke Scale Level of Conciousness: Alert, keenly responsive Ask month/age: Answers both questions correctly. Open/close eyes, close hand: Performs both tasks correctly Best gaze horizontal: Normal Visual blanco: No visual loss Facial palsy: Normal symetrical movement Left arm drift: No drift for full 10 sec Right arm drift: No drift for full 10 sec Left leg drift: No drift for full 5 sec Right leg drift: No drift for full 5 sec Limb ataxia: Absent Sensory on face/arms/legs: Normal, no sensory loss Best language: No aphasia, normal Dysarthria: Normal Extinction or inattention: No abnormality Total NIH Stroke scale score: 0 Course Orders Ordered: ED Orders 06/10/24 14:11 MR head/brain wo con Stat 06/10/24 14:14 CMP [Comprehensive Metabolic Panel] Stat Complete Blood Count AUTO DIFF Stat Vital Signs Vital signs: Vital Signs - 8 hr 06/10/24 13:51 06/10/24 14:18 06/10/24 14:19 Temperature 98.4 F Pulse Rate 88 87 87 Respiratory Rate 18 Blood Pressure 160/85 H Pulse Oximetry 100 96 94 Oxygen Delivery Method Room Air 06/10/24 14:19 06/10/24 14:30 06/10/24 14:31 Temperature Pulse Rate 82 82 Respiratory Rate Blood Pressure 178/99 H Pulse Oximetry 97 95 Oxygen Delivery Method Room Air 06/10/24 14:31 06/10/24 14:38 06/10/24 15:44 Temperature Pulse Rate 82 Respiratory Rate Blood Pressure 144/94 H 148/96 H Pulse Oximetry 96 Oxygen Delivery Method Room Air MDM - Neuro Symptoms/Deficit Lab Data 06/10/24 14:14 06/10/24 14:14 Labs: Lab Results 06/10/24 Range/Units 14:14 WBC 9.1 (4.5-11.0) X10^3/uL RBC 5.18 (4.0-5.2) X10^6/uL Hgb 13.3 (12.0-16.0) g/dL Hct 40.6 (36-46) % MCV 78.3 L (80-100) fL MCH 25.6 L (26-34) PG MCHC 32.7 (30-36) % RDW 16.3 H (11.6-14.8) % Plt Count 441 H (150-400) X10^3/uL Neut % (Auto) 60.0 (50-75) % Lymph % (Auto) 24.7 L (25-40) % [place] % (Auto) 10.4 (3-14) % Eos % (Auto) 3.7 (2-4) % Baso % (Auto) 1.2 (0-2) % Neut # (Auto) 5400 (2949-6873) /uL Lymph # (Auto) 2200 (0455-2247) /uL [place] # (Auto) 900 (0-900) /uL Eos # (Auto) 300 (0-450) /uL Baso # (Auto) 100 (0-100) /uL Sodium 137 (137-145) mmol/L Potassium 4.0 (3.4-5.1) mmol/L Chloride 106 (98-107) mmol/L Carbon Dioxide 21 L (22-32) mmol/L BUN 8 (7-17) mg/dL Creatinine 0.76 (0.52-1.04) mg/dL Estimated GFR > 60 (>60) mL/min BUN/Creatinine Ratio 10.5 (6-22) Glucose 96 (70-100) mg/dL Calcium 9.1 (8.4-10.2) mg/dL Total Bilirubin 0.6 (0.2-1.3) mg/dL AST 33 (14-36) IU/L ALT 32 (<35) IU/L Alkaline Phosphatase 76 (38-126) U/L Total Protein 8.1 (6.3-8.2) g/dL Albumin 4.6 (3.5-5.0) g/dL Globulin 3.5 (1.7-4.1) g/dL Albumin/Globulin Ratio 1.3 (1.0-2.8) Imaging Data MRI brain: Radiologist's Impression: [address] [address] Magnetic Resonance Report Signed Patient: Marisela Forrest MR#: [id number] : 1990 Acct:[id number] Age/Sex: 34 / F Date of Service: 06/10/24 Loc: ED Accession Number: [id number] Procedure: MR head/brain wo con Ordering Provider: Oracio Sloan MD PROCEDURE: MR HEAD/BRAIN WO CON INDICATIONS: Right facial droop TECHNIQUE: Noncontrast axial T1 spin echo, axial T2 fast spin echo, sagittal and axial FLAIR, coronal T2 fast spin echo, axial gradient echo, axial diffusion and ADC through the brain. COMPARISON: [facility], MR, MR ORBIT WITH/WITHOUT CONTRAST, 03/09/2022, 9:59. Located Within [facility], CT, CT HEAD/BRAIN WO CON, 05/04/2024, 19:22. Located Within [facility], CT, CT ANGIO HEAD AND NECK, 05/04/2024, 19:16. FINDINGS: Image quality: This examination is limited by involuntary motion artifact. Limited by lack of IV contrast. CSF Spaces: Basal cisterns are patent. No extra-axial fluid collections. Ventricles are normal in size and shape. Brain: No intracranial masses or hemorrhage. Patrick/white matter interface is normal. Brainstem appears normal. Diffusion-weighted images demonstrate no acute infarct. No chronic ischemic insults. Normal intravascular flow voids are present. In this patient with this given history, scrutiny is given to course of the right facial nerve, including within the right parotid gland. To the limits of this study without contrast, no abnormal signal or masses can be seen along the course of the right facial nerve. Skull and face: Calvarium has normal marrow signal. Orbits appear normal. Sinuses: Sinuses and mastoids are clear. IMPRESSION: No imaging explanation is found for this patient's presenting symptoms, to the limits of this standard protocol study without IV contrast. No findings of acute or subacute infarction can be seen. Dictated by: Adalid Liriano M.D. on 06/10/2024 at 14:19 Approved by: Adalid Liriano M.D. on 06/10/2024 at 14:21 [facility] Narrative Medical decision making narrative: Patient here with . Complains of right facial drooping past 2 days. Describes it as facial twitching on the right side. However no limb numbness tingling or weakness. Patient has long history of migraine headaches. They have been under lot of stress recently they are trying to move. Patient is seen here 6 days ago had normal CT head and CT angiogram head and neck. She states her headache has improved. No vision changes. No rash on the face. No prior history of Cintron's palsy After history and exam CBC CMP MRI brain [facility] Medical records reviewed: CT head CT angiogram head and neck from 6 days ago Differential considered: Includes but not limited to Cintron's palsy stroke complex migraine Lab Test results independently reviewed as above. Pertinent findings: WBC 9.1 sodium 137 potassium 4.0 Independently reviewed EKG none indicated Imaging studies independently reviewed: MRI brain no acute finding Consultations: None indicated this time Treatments: None indicated at this time Re-evaluations: 3:27 p.m.. Updated patient and results. They are reassuring. Likely extension of her migraine headache causing her symptoms. In addition to have been under lot of stress. Return precautions reviewed. Nontoxic at discharge. They desire discharge home. Discussion: Appropriate for discharge home exam is reassuring. No stroke seen on MRI or exam. Return precautions reviewed. They desire discharge home. Diagnosis: Facial twitching/anxiety Discharge Plan Departure Patient Disposition: Home Clinical Impression: Facial twitching Instructions: Migraine -- Adult, DI for Anxiety -- Adult, DI for Muscle Spasm Activity Restrictions/Additional Instructions: Your exam and laboratory studies are reassuring today. MRI of your brain is reassuring. No stroke seen on MRI. Please see family doctor in a week for re-evaluation. Return if worse if any questions or concerns. Continue any home medications. Prescriptions: No Action amitriptyline 25 mg tablet 25 mg PO ONCE PM ondansetron 4 mg tablet,disintegrating 4 mg PO Q8H PRN (Reason: nausea/vomiting) Ubrelvy 50 mg tablet 50 mg PO PRN PRN (Reason: Migraine Headache) Referrals: Miscellaneous,Doctor, MD [Primary Care Provider] - Stand Alone Forms: Patient Portal/API/Survey
--- NOTE | 2024-06-10 14:11 | DI.MRI.S_ITS ---
PROCEDURE: MR HEAD/BRAIN WO CON INDICATIONS: Right facial droop TECHNIQUE: Noncontrast axial T1 spin echo, axial T2 fast spin echo, sagittal and axial FLAIR, coronal T2 fast spin echo, axial gradient echo, axial diffusion and ADC through the brain. COMPARISON: [facility], MR, MR ORBIT WITH/WITHOUT CONTRAST, 03/09/2022, 9:59. [facility], CT, CT HEAD/BRAIN WO CON, 05/04/2024, 19:22. [facility], CT, CT ANGIO HEAD AND NECK, 05/04/2024, 19:16. FINDINGS: Image quality: This examination is limited by involuntary motion artifact. Limited by lack of IV contrast. CSF Spaces: Basal cisterns are patent. No extra-axial fluid collections. Ventricles are normal in size and shape. Brain: No intracranial masses or hemorrhage. Patrick/white matter interface is normal. Brainstem appears normal. Diffusion-weighted images demonstrate no acute infarct. No chronic ischemic insults. Normal intravascular flow voids are present. In this patient with this given history, scrutiny is given to course of the right facial nerve, including within the right parotid gland. To the limits of this study without contrast, no abnormal signal or masses can be seen along the course of the right facial nerve. Skull and face: Calvarium has normal marrow signal. Orbits appear normal. Sinuses: Sinuses and mastoids are clear. IMPRESSION: No imaging explanation is found for this patient's presenting symptoms, to the limits of this standard protocol study without IV contrast. No findings of acute or subacute infarction can be seen. Dictated by: Adalid Liriano M.D. on 06/10/2024 at 14:19 Approved by: Adalid Liriano M.D. on 06/10/2024 at 14:21
[2024-06-10 14:27] LABS: Add Manual Diff / Slide Review NO; Basophils Absolute Auto 100 /uL (0-100); Basophils Percent Auto 1.2 % (0-2); Eosinophils Absolute Auto 300 /uL (0-450); Eosinophils Percent Auto 3.7 % (2-4); Hematocrit 40.6 % (36-46); Hemoglobin 13.3 g/dL (12.0-16.0); Lymphocytes Absolute Auto 2200 /uL (1100-4500); Lymphocytes Percent Auto 24.7 % (25-40); Mean Corpuscular HGB Conc 32.7 % (30-36); Mean Corpuscular Hemoglobin 25.6 PG (26-34); Mean Corpuscular Volume 78.3 fL (80-100); Monocytes Absolute Auto 900 /uL (0-900); Monocytes Percent Auto 10.4 % (3-14); Neutrophils Absolute Auto 5400 /uL (1500-7000); Platelet Count 441 X10^3/uL (150-400); Red Blood Cell Count 5.18 X10^6/uL (4.0-5.2); Red Cell Distribution Width 16.3 % (11.6-14.8); White Blood Cell Count 9.1 X10^3/uL (4.5-11.0)
[2024-06-10 14:33] LABS: Alanine Aminotransferase 32 IU/L (<35); Albumin 4.6 g/dL (3.5-5.0); Albumin Globulin Ratio 1.3 (1.0-2.8); Alkaline Phosphatase 76 U/L (38-126); Aspartate Aminotransferase 33 IU/L (14-36); BUN Creatinine Ratio 10.5 (6-22); Bilirubin Total 0.6 mg/dL (0.2-1.3); Blood Urea Nitrogen 8 mg/dL (7-17); Calcium 9.1 mg/dL (8.4-10.2); Carbon Dioxide 21 mmol/L (22-32); Chloride 106 mmol/L (98-107); Estimated Glomerular Filt Rate > 60 mL/min (>60); Globulin 3.5 g/dL (1.7-4.1); Glucose 96 mg/dL (70-100); HEMOLYSIS 25 (0-50); Sodium 137 mmol/L (137-145); Total Protein 8.1 g/dL (6.3-8.2)
== END 2024-06-10 15:55 | disposition home or self-care (01) ==
PROVIDERS: Emergency Provider Emergency Medicine
DX: R25.3 Fasciculation (principal); R29.810 Facial weakness; Z59.10 Inadequate housing, unspecified
CPT/HCPCS: 70551; 80053; 85025; 99284

== ENCOUNTER 2024-06-13 13:26 | Emergency (ER) | payer OTHER, MEDICAID, SELFPAY ==
[2024-06-13] VITALS (10 sets, daily range): BP systolic 139–179; BP diastolic 84–93; PULSE 79–121; RESP 15–27; TEMP 36.8; O2SAT 96–99; BMI 43.4
--- NOTE | 2024-06-13 14:07 | ED.HA ---
HPI - Headache General Chief Complaint: Headache Stated Complaint: nausea, inflammation in head Time Seen by Provider: 06/13/24 13:29 Source: patient Mode of arrival: Ambulatory Limitations: no limitations History of Present Illness HPI Narrative: 34-year-old female. Has a longstanding history of headaches. Has tried multiple medications in the past without improvement. Does see a headache specialist. Is not scheduled to see a headache specialist until after the new year because of scheduling issues. She was here because of continued headache. States she was ?inflammation? in her head. Related Data Home Medications Medication Instructions Recorded Confirmed amitriptyline 25 mg tablet 25 mg PO ONCE PM 06/13/24 06/13/24 ondansetron 4 mg disintegrating 4 mg PO Q8H PRN nausea/vomiting 06/13/24 06/13/24 tablet ubrogepant 50 mg tablet (Ubrelvy) 50 mg PO PRN PRN Migraine Headache 06/13/24 06/13/24 Allergies Allergy/AdvReac Type Severity Reaction Status Date / Time hydrocodone AdvReac Headache Verified 06/13/24 13:36 Review of Systems Review of Systems ROS Unobtainable: All systems reviewed & are unremarkable except as noted in HPI and below Patient History Medical History No active medical problems Social History Smoking Status: Never smoker Smoking Status: Never smoker alcohol intake frequency: holidays/special occasions only Substance Use Type: does not use Exam Initial Vital Signs Initial Vital Signs: Vital Signs Pulse Rate 121 H 06/13/24 13:33 Pulse Oximetry 98 06/13/24 13:33 Const General: cooperative and comfortable HENMT Head: normal to inspection and normocephalic Resp Effort & Inspection: normal respiratory effort Cardio Rate: regular rate Neuro General: patient alert, patient awake, patient oriented x3 and moves all extremities Speech: speech normal Gait: normal gait Extrem General: normal to inspection and capillary refill normal Course Orders Ordered: ED Orders 06/13/24 13:47 Basic Metabolic Panel Stat Complete Blood Count AUTO DIFF Stat Discontinued Medications Haloperidol (Haloperidol 5 Mg/Ml Vial) 2.5 mg IV NOW ONE Stop: 06/13/24 14:15 Last Admin: 06/13/24 14:36 Dose: 2.5 mg Documented By: SPF Hydromorphone HCl (Hydromorphone 0.5 Mg Inj) 0.5 mg IV NOW ONE Stop: 06/13/24 16:19 Last Admin: 06/13/24 16:21 Dose: 0.5 mg Documented By: JAY Acetaminophen (Ofirmev) 1,000 mg in 100 mls @ 400 mls/hr IV NOW ONE Stop: 06/13/24 14:28 Last Infusion: 06/13/24 15:30 Dose: Infused Documented By: Admin: 06/13/24 14:49 Dose: 400 mls/hr Documented By: KASHIF Ketorolac Tromethamine (Ketorolac 30 Mg/Ml Vial) 15 mg IV NOW ONE Stop: 06/13/24 14:15 Last Admin: 06/13/24 14:35 Dose: 15 mg Documented By: KASHIF Methylprednisolone (Methylprednisolone 125 Mg/2 Ml Vial) 125 mg IV NOW ONE Stop: 06/13/24 14:15 Last Admin: 06/13/24 14:36 Dose: 125 mg Documented By: KASHIF Vital Signs Vital signs: Vital Signs - 8 hr 06/13/24 13:33 06/13/24 13:34 06/13/24 13:34 Temperature Pulse Rate 121 H 113 H Respiratory Rate Blood Pressure 179/84 H Pulse Oximetry 98 99 Oxygen Delivery Method 06/13/24 13:36 06/13/24 14:00 06/13/24 14:30 Temperature 98.2 F Pulse Rate 104 H 101 H 98 H Respiratory Rate 17 16 15 Blood Pressure 179/84 H Pulse Oximetry 98 97 98 Oxygen Delivery Method Room Air Room Air 06/13/24 14:45 06/13/24 14:45 Temperature Pulse Rate 101 H Respiratory Rate 18 Blood Pressure 167/93 H Pulse Oximetry 97 Oxygen Delivery Method Room Air MDM - Headache Medical Records Attestation: I reviewed the patient's medical records. Lab Data Attestation: I reviewed the patient's lab results. 06/13/24 13:47 06/13/24 13:47 Labs: Lab Results 06/13/24 Range/Units 13:47 WBC 10.5 (4.5-11.0) X10^3/uL RBC 5.16 (4.0-5.2) X10^6/uL Hgb 13.2 (12.0-16.0) g/dL Hct 40.5 (36-46) % MCV 78.5 L (80-100) fL MCH 25.7 L (26-34) PG MCHC 32.7 (30-36) % RDW 16.7 H (11.6-14.8) % Plt Count 390 (150-400) X10^3/uL Neut % (Auto) 73.9 (50-75) % Lymph % (Auto) 15.3 L (25-40) % Bracken % (Auto) 8.2 (3-14) % Eos % (Auto) 1.8 L (2-4) % Baso % (Auto) 0.8 (0-2) % Neut # (Auto) 7800 H (5707-7647) /uL Lymph # (Auto) 1600 (9283-7906) /uL Bracken # (Auto) 900 (0-900) /uL Eos # (Auto) 200 (0-450) /uL Baso # (Auto) 100 (0-100) /uL Sodium 138 (137-145) mmol/L Potassium 3.8 (3.4-5.1) mmol/L Chloride 105 (98-107) mmol/L Carbon Dioxide 23 (22-32) mmol/L BUN 7 (7-17) mg/dL Creatinine 0.65 (0.52-1.04) mg/dL Estimated GFR > 60 (>60) mL/min BUN/Creatinine Ratio 10.8 (6-22) Glucose 100 (70-100) mg/dL Calcium 9.3 (8.4-10.2) mg/dL [facility] Narrative Medical decision making narrative: Patient reports significant improvement of headache after medications here in the ER. Review of her medical record shows that she was had a very extensive workup out of the emergency department to include MRI, labs, CT scans all of which did not show any specific pathology. She was also under the care of a neurologist. Is on medications at home for her headache which seemed to not be working well. Unfortunately other than pain control there was not much more that we can offer out of the emergency department. I do recommend that she talk with her primary doctor and her neurologist about the lack of control of her symptoms. She was given return precautions. She expressed understanding and agreement. Discharge Plan Departure Patient Disposition: Home Clinical Impression: Headache Instructions: DI for Headache Activity Restrictions/Additional Instructions: Continue to take all of your medications as directed. I do recommend that you talk with your primary doctor to help assist you in finding a new primary doctor in [place]. Also recommend that you talk with your neurologist office about this as well. Return to the emergency department for new symptoms. Prescriptions: No Action amitriptyline 25 mg tablet 25 mg PO ONCE PM ondansetron 4 mg tablet,disintegrating 4 mg PO Q8H PRN (Reason: nausea/vomiting) Ubrelvy 50 mg tablet 50 mg PO PRN PRN (Reason: Migraine Headache) Referrals: Miscellaneous,Doctor, MD [Primary Care Provider] - Stand Alone Forms: Patient Portal/API/Survey
[2024-06-13] MEDS: KETOROLAC 30 MG/ML VIAL 15 MG IV (14:35)
[2024-06-13 14:36] LABS: Add Manual Diff / Slide Review NO; Basophils Absolute Auto 100 /uL (0-100); Basophils Percent Auto 0.8 % (0-2); Eosinophils Absolute Auto 200 /uL (0-450); Eosinophils Percent Auto 1.8 % (2-4); Hematocrit 40.5 % (36-46); Hemoglobin 13.2 g/dL (12.0-16.0); Lymphocytes Absolute Auto 1600 /uL (1100-4500); Lymphocytes Percent Auto 15.3 % (25-40); Mean Corpuscular HGB Conc 32.7 % (30-36); Mean Corpuscular Hemoglobin 25.7 PG (26-34); Mean Corpuscular Volume 78.5 fL (80-100); Monocytes Absolute Auto 900 /uL (0-900); Monocytes Percent Auto 8.2 % (3-14); Neutrophils Absolute Auto 7800 /uL (1500-7000); Neutrophils Percent Auto 73.9 % (50-75); Platelet Count 390 X10^3/uL (150-400); Red Blood Cell Count 5.16 X10^6/uL (4.0-5.2); Red Cell Distribution Width 16.7 % (11.6-14.8); White Blood Cell Count 10.5 X10^3/uL (4.5-11.0)
[2024-06-13] MEDS: methylPREDNISolone 125 MG/2 ML VIAL IV (14:36)
[2024-06-13] MEDS: HALOPERIDOL 5 MG/ML VIAL 2.5 MG IV (14:36)
[2024-06-13 14:39] LABS: BUN Creatinine Ratio 10.8 (6-22); Blood Urea Nitrogen 7 mg/dL (7-17); Calcium 9.3 mg/dL (8.4-10.2); Carbon Dioxide 23 mmol/L (22-32); Chloride 105 mmol/L (98-107); Estimated Glomerular Filt Rate > 60 mL/min (>60); Glucose 100 mg/dL (70-100); HEMOLYSIS < 15 (0-50); Potassium 3.8 mmol/L (3.4-5.1); Sodium 138 mmol/L (137-145)
[2024-06-13] MEDS: ACETAMINOPHEN IV 1,000 MG/100 ML VIAL 400 MG IV (14:49)
[2024-06-13] MEDS: HYDROMORPHONE 0.5 MG INJ IV (16:21)
== END 2024-06-13 16:33 | disposition home or self-care (01) ==
PROVIDERS: Emergency Provider Emergency Medicine
DX: R51.9 Headache, unspecified (principal)
CPT/HCPCS: 36415; 80048; 85025; 96365; 96375; 99284; J0134; J1171; J1630; J1885; J2919